=== PATIENT | male | born 1950 | race Caucasian/White ===

== ENCOUNTER 2025-05-16 16:36 | Emergency (ER) | payer OTHER ==
[~2025-05-16] VITALS: Ht 185.4 cm; Wt 79.9 kg
[2025-05-16 16:58] VITALS: TEMP 97.1
--- NOTE | 2025-05-16 17:10 | ELECTROCARDIOGRAPH REPORT ---
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 Enrique Gary Measurements Intervals [place] Rate: 73 P: 91 IN: 169 QRS: 68 QRSD: 94 T: 43 QT: 377 QTc: 416 Interpretive Statements Sinus rhythm Ventricular premature complex Electronically Signed On 05-16-2025 18:50:[address] Enrique Gary Please click the below link to view image of tracing.
--- NOTE | 2025-05-16 17:33 | RADIOLOGY REPORT ---
EXAM: DI CHEST,SINGLE VIEW HISTORY: CP TECHNIQUE: 1 view of the chest COMPARISON: None FINDINGS/IMPRESSION: LUNGS: No pleural effusion, consolidation, or pneumothorax. MEDIASTINUM: Unremarkable. BONES: Bilateral sequelae of healed nondisplaced fractures of the anterior 2nd ribs. Associated callus formation. OTHER: None.
[2025-05-16 17:43] LABS: MEAN PLATELET VOLUME 8.4 FL (7.4-10.4); RED CELL DISTRIBUTION WIDTH 13.9 % (11.5-14.5)
[2025-05-16 18:00] LABS: CREATININE 0.98 MG/DL (0.60-1.10); PRO BRAIN NATRIURETIC PEPTIDE 205 PG/ML (0-450); TOTAL CARBON DIOXIDE 31.0 MMOL/L (24-32); eCRCL 72 ML/MIN; eGFR 74 ML/MIN
[2025-05-16 20:50] VITALS: BP 147/78; PULSE 78; RESP 15; O2SAT 99
[2025-05-16] MEDS ORDERED: ROPI0.2534 PO (21:22)
--- NOTE | 2025-05-16 21:22 | Physician Documentation ---
History of Present Illness ~ Chief Complaint: Weakness Stated Complaint: MULTIPLE MED COMPLAINTS Time Seen by MD: 21:07 OK to notify your PCP?: Yes HPI Patient presents to the emergency room for evaluation of leg twitching. He states that in last night and kept him from sleeping. He states he has had this before but never this bad. No new medications. Patient also endorses shortness of breath however this is nothing acute and has been going on for some time. He attributes it to smoking which he is trying to quit Medication Reconciliation Allergies: Coded Allergies: No Known Allergies (Unverified , 05/16/25) Review of Systems ROS All review of systems negative except as per HPI Physical Exam Vital Signs: Temperature: 97.1, Heart Rate: 77, Respiratory Rate: 22, BP: 139/82, Pulse Oximetry: 99, Weight: 79.900 Oxygen Flow Rate: 0 Physical Exam General: Patient is awake, alert, oriented x4 in no acute distress Head: Normocephalic and atraumatic. Eyes: Conjunctival normal. EOMI. PERRL. ENT: Mucous membranes moist. Neck: Supple, trachea is midline. Chest: Clear to auscultation bilaterally without rales, rhonchi, or wheezes. There is no accessory muscle use or retractions. Cardiac: RRR without murmurs, gallops, or rubs. Abd: Soft, nondistended, nontender, with normoactive bowel sounds. No guarding, rebound, or rigidity. Extremities: Normal strength. Normal range of motion. No deformities or edema. \ Progress Results/Orders Results/Orders Orders - THOMAS RENTERIA MD Ropinirole Tablet (Requip Tablet) (05/16/25 21:15) Vital Signs 05/16/25 16:58 Temp 97.1 Pulse 77 Resp 22 B/P (MAP) 139/82 Pulse Ox 99 O2 Flow Rate 0 Laboratory Tests Test 05/16/25 17:12 05/16/25 19:17 White Blood Count 8.5 Red Blood Count 5.21 Hemoglobin 15.9 Hematocrit 45.0 Mean Corpuscular Volume 86.5 Mean Corpuscular Hemoglobin 30.5 Mean Corpuscular Hemoglobin Concent 35.3 Red Cell Distribution Width 13.9 Platelet Count 194 Mean Platelet Volume 8.4 Neutrophils (%) (Auto) 76.2 H Lymphocytes (%) (Auto) 15.5 L Monocytes (%) (Auto) 7.1 Eosinophils (%) (Auto) 0.5 Basophils (%) (Auto) 0.7 Neutrophils # (Auto) 6.5 Lymphocytes # (Auto) 1.3 Monocytes # (Auto) 0.6 Eosinophils # (Auto) 0.0 Basophils # (Auto) 0.1 CBC Comment Sodium Level 141 Potassium Level 3.3 L Chloride Level 102 Carbon Dioxide Level 31.0 Anion Gap 8 Blood Urea Nitrogen 20 H Creatinine 0.98 Estimated GFR/1.73 m2 74 BUN/Creatinine Ratio 20.4 H Glucose Level 127 H Calcium Level 10.0 Troponin I High Sensitivity 9 8 Pro-B-Type Natriuretic Peptide 205 Albumin 4.3 Chemistry Comments Troponin I High Sens Percent Delta 11 Troponin I Hi Sens Absolute Change -1 Medical Decision Making Additional information obtaine: N/A Findings Patient presents to the emergency room with switching in his legs that has per HPI. Differentials include but are not limited to restless legs syndrome, electrolyte disturbances, dehydration, muscle cramps therefore emergent labs ordered which were reassuring. Mild hypokalemia noted. Patient states he takes supplemental potassium twice a day. He has been instructed to increase his dosage to 3 times a day over the next two days. Encouraged to hydrate. I will give him prescription for ropinirole for restless leg syndrome Differential Dx:Considerations: Include: anemia, CVA, dehydration, dysrhythmia, electrolyte imbalance, encephalopathy, Guillain-Hood, hypoglycemia, hypotensio n, hypovolemia, labyrinthitis, Meniere's disease, myasathenia gravis, myocardial infarction, pulmonary embolus, renal failure, respiratory failure, TIA, VBI, vertigo central, vertigo peripheral, vestibular neuronitis, other Departure Disposition: HOME / SELF CARE / HOMELESS Impression: Primary Impression: Restless leg Additional Impression: Hypokalemia Condition: Stable Discharge Instructions: Restless Legs Syndrome Additional Instructions: Increase your potassium supplementation to 3 times a day over the next two days. Follow up with your doctor for management of your potassium. Keep hydrated. Referrals: NO PRIMARY CARE PROVIDER (PCP) Prescriptions Ropinirole Hcl (Ropinirole Hcl) 0.25 Mg Tablet 1 TAB PO HS, #15 TAB 0 Refills take one tablet for two nights. May increase to two tablets at night then after. Prov: THOMAS RENTERIA MD 05/16/25 Signature Scribe Signature: No scribe Attestation: The note accurately reflects work and decisions made by me.Thomas Renteria MD 05/16/25 21:19 THOMAS RENTERIA MD May 16, 2025 21:22
== END 2025-05-16 22:01 | disposition home or self-care (01) ==
LOC: ER 16:38
DX: G25.81 Restless legs syndrome (principal); E87.6 Hypokalemia; F17.200 Nicotine dependence, unspecified, uncomplicated
CPT/HCPCS: 36415; 71045; 80048; 83880; 84484; 85025; 93005; 99283; 99285

== ENCOUNTER 2025-05-18 17:11 | Emergency (ER) | payer OTHER ==
[~2025-05-18] VITALS: Ht 185.4 cm; Wt 79.5 kg
[~2025-05-18 17:11] MED LIST: ROPI0.2534 PO
--- NOTE | 2025-05-18 18:40 | Physician Documentation ---
History of Present Illness ~ Chief Complaint: Narcotic Withdrawl Stated Complaint: SOB Time Seen by MD: 17:37 OK to notify your PCP?: Yes Source: patient, family Mode of Arrival: EMS Exam Limitations: no limitations HPI 74-year-old male who is here due to shortness of breath and nausea as well as episodes of vomiting which have been ongoing now for a few days. He was seen here in the ER two days ago and states he was diagnosed with narcotic withdrawal. Patient was on Suboxone for over a year and decided this last month to wean himself off of it over a period of 30 days. He states that his last doses of Suboxone was a week ago and that his symptoms started a few days after his last dosage of Suboxone. He got on Suboxone after getting hooked on [place] following a back surgery. He states he can not sleep. He reports that his legs are very restless. He was prescribed Requip at his recent ER visit but this has not helped. Given zofran in ambulance on way here provided no relief of his nausea. Episode of vomiting shortly after arrival and reports still feels very nauseated. Medication Reconciliation Allergies: Coded Allergies: No Known Allergies (Unverified , 05/16/25) Scheduled Buprenorphine Hcl/Naloxone Hcl (Suboxone 2 Mg-0.5 Mg Sl Film), 2 STRIP SL DAILY Ropinirole Hcl (Ropinirole Hcl), 1 TAB PO HS Trazodone HCl (Trazodone HCl), 1 TAB PO HS Scheduled PRN ONDANSETRON ODT 4mg tablet (Ondansetron Odt), 1 TABLET PO Q6H PRN for nausea/vomiting Past Medical History Past Medical History: Chronic Back Pain Smoking Status: Former smoker Alcohol Use: None Drug Use: none Lives In: Home Review of Systems All Other Systems at this time: Reviewed and Negative Physical Exam Vital Signs: Temperature: 97.9, Source: Temporal, Heart Rate: 80, Respiratory Rate: 12, BP: 154/86, Pulse Oximetry: 96, Weight: 79.500 Physical Exam GENERAL: Alert, MILD DISTRESS, HOLDING EMESIS BAG WHICH CONTAINS EMESIS. HEENT: NCAT, EOMI, PERRL, normal oropharynx, moist oral mucosa. NECK: Supple, trachea midline. CARDIAC: Regular rate and rhythm, no murmurs, rubs, or gallops. Equal distal pulses. No lower extremity edema, cap refill less than 2 seconds. RESPIRATORY: Equal breath sounds, clear to auscultation bilaterally, no respiratory distress. GASTROINTESTINAL: Non distended, soft, nontender, No guarding or rebound. MUSCULOSKELETAL: Normal range of motion, nontender, no swelling. Normal gait. NEUROLOGICAL: Awake, alert, and oriented x 3. SKIN: Warm/dry, no pallor, no rash. PSYCH: Alert and appropriate. Affect congruent with mood. Speech is clear. Good eye contact. General Appearance: alert Progress Results/Orders Results/Orders Completed Orders - OHLFS,KAIN Saha MD Buprenorphine/Naloxone Tablet (Buprenorp (05/18/25 19:15) Hs Troponin I W Calculations (05/18/25 20:00) Lisinopril Tablet (Zestril Tablet) (05/18/25 20:45) Ondansetron Disint. Tablet (Zofran Odt T (05/18/25 20:45) Lorazepam Tablet (Ativan Tablet) (05/18/25 20:45) Normal Saline 1000ml (0.9% Sodium Chlori (05/18/25 21:15) Normal Saline 1000ml (0.9% Sodium Chlori (05/18/25 21:55) Medications Received in ER Medications (Trade) Dose Ordered Sig/Jasmine Route PRN Reason Start Time Stop Time Status Last Admin Dose Admin (Zofran ODT tablet) 4 mg ONCE ONCE PO 05/18/25 20:45 05/18/25 20:49 DC 05/18/25 20:58 4 MG (Ativan tablet) 2 mg ONCE ONCE PO 05/18/25 20:45 05/18/25 20:46 DC 05/18/25 20:59 2 MG (0.9% sodium chloride (NS) 1000ml IV soln) 1,000 ml ONCE ONCE IVB 05/18/25 21:15 05/18/25 21:23 DC 05/18/25 21:30 1,000 ML (0.9% sodium chloride (NS) 1000ml IV soln) 1,000 ml ONCE ONCE IVB 05/18/25 21:55 05/18/25 21:58 DC 05/18/25 22:00 1,000 ML Vital Signs 05/18/25 05/18/25 05/18/2525 17:13 17:35 17:36 19:19 Temp 97.9 97.9 Pulse 55 80 62 Resp 16 15 12 16 B/P (MAP) 195/80 154/86 (108) 121/79 Pulse Ox 99 96 100 05/18/25 05/18/25 05/18/25 05/18/25 20:15 20:59 21:30 21:59 Temp 97.9 97.9 Pulse 60 58 59 Resp 16 18 16 B/P (MAP) 165/67 (99) 81/45 (57) 105/54 (71) Pulse Ox 100 98 O2 Flow Rate 0 0 Laboratory Tests Test 05/18/25 18:14 05/18/25 20:40 White Blood Count 7.8 Red Blood Count 5.09 Hemoglobin 15.6 Hematocrit 44.1 Mean Corpuscular Volume 86.7 Mean Corpuscular Hemoglobin 30.6 Mean Corpuscular Hemoglobin Concent 35.3 Red Cell Distribution Width 13.8 Platelet Count 169 Mean Platelet Volume 8.5 Neutrophils (%) (Auto) 85.9 H Lymphocytes (%) (Auto) 8.6 L Monocytes (%) (Auto) 4.7 Eosinophils (%) (Auto) 0.1 Basophils (%) (Auto) 0.7 Neutrophils # (Auto) 6.7 Lymphocytes # (Auto) 0.7 L Monocytes # (Auto) 0.4 Eosinophils # (Auto) 0.0 Basophils # (Auto) 0.1 CBC Comment Sodium Level 138 Potassium Level 2.9 *L Chloride Level 99 Carbon Dioxide Level 28.7 Anion Gap 10 Blood Urea Nitrogen 20 H Creatinine 0.82 Estimated GFR/1.73 m2 > 90 BUN/Creatinine Ratio 24.4 H Glucose Level 134 H Calcium Level 9.6 Magnesium Level 1.9 Troponin I High Sensitivity 12 19 Troponin I High Sens Percent Delta 50 58 Troponin I Hi Sens Absolute Change 4 7 Pro-B-Type Natriuretic Peptide 187 Albumin 4.4 Chemistry Comments Medical Decision Making Additional information obtaine: N/A Findings N/A Differential Dx:Considerations: Include: Alcohol withdrawl synd., Delerium tremens, Hallucinosis, Seizures, Anticholinergic poisoning, CVA, Dehydration, Depression, Drug induced psychosis, Electolyte imbalance, Encephalitis, Encephalopathy, Hepatitis, Hyperthermia, Intoxication-alcohol, Intoxication- other drug, Medical noncompliance, Personality disorder, Schizophrenia, Seizure disorder, Substance abuse disorder, Seizure disorder, Thiamine deficiency, Thyrotoxicosis, Other Departure Time of Disposition: 18:50 Disposition: 01 HOME / SELF CARE / HOMELESS Impression: Primary Impression: Narcotic withdrawal Condition: Stable Discharge Instructions: Narcotic Withdrawal Additional Instructions: I RECOMMEND YOU TAPER OFF THE SUBOXONE OVER A LONGER PERIOD OF TIME IT APPEARS YOUR SYMPTOMS ARE DUE TO TAPERING OFF TOO QUICKLY RETURN TO ER IF ANY NEW CONCERNING SYMPTOMS OTHERWISE F/U WITH PCP WITHIN THE NEXT WEEK Referrals: NO PRIMARY CARE PROVIDER (PCP) Prescriptions ONDANSETRON ODT 4mg tablet (ONDANSETRON ODT) 4 Mg Tab.rapdis 1 TABLET PO Q6H PRN for nausea/vomiting, #12 TABLET Prov: KAIN BACA MD 05/18/25 Trazodone HCl (Trazodone HCl) 50 Mg Tablet 1 TAB PO HS for 30 Days, #30 TAB 0 Refills Prov: KAIN BACA MD 05/18/25 Buprenorphine Hcl/Naloxone Hcl (Suboxone 2 Mg-0.5 Mg Sl Film) 2 Mg-0.5 Mg Film 2 STRIP SL DAILY for 30 Days, #30 STRIP DX: NARCOTIC WITHDRAWAL F11.23 Prov: JOSEPHINE COOPER 05/18/25 Education Educated: Patient Educated regarding: diagnosis, treatment, need for follow up Additional Comment Seen with PA/DISTRIBUTION SUPERINTENDENT The patient was seen with the physician social work assistant the patient received a dose of Suboxone here as he has narcotic withdrawal symptoms, the patient did develop some hypotension this resolved after IV fluid administration. The patient states symptoms have improved the patient will be discharged on Suboxone. The patient has been advised to return for significant worsening of his symptoms. Signature Scribe Signature: x Attestation: JOSEPHINE Escobar May 18, 2025 18:40 KAIN BACA MD May 19, 2025 04:24
--- NOTE | 2025-05-18 18:41 | ELECTROCARDIOGRAPH REPORT ---
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 GEORGE Mendez Measurements Intervals [place] Rate: 67 P: 92 HI: 193 QRS: 85 QRSD: 102 T: 80 QT: 470 QTc: 497 Interpretive Statements Sinus bradycardia Atrial premature complex Borderline right axis deviation Electronically Signed On 05-21-2025 18:04:[address] GEORGE Mendez Please click the below link to view image of tracing.
--- NOTE | 2025-05-18 18:47 | RADIOLOGY REPORT ---
EXAM: DI CHEST,SINGLE VIEW CLINICAL HISTORY: CP TECHNIQUE: Single AP view of the chest WID: COMPARISON: DI CHEST,SINGLE VIEW on DOS: 05/16/25 FINDINGS: Lines and tubes: None Chest: The heart size and pulmonary vasculature is within normal limits. No pleural effusion, pneumothorax, or consolidation. Linear areas of atelectasis or scarring in the lower lungs. The osseous structures are grossly intact. Multilevel thoracic spondylosis. IMPRESSION: 1. No acute cardiopulmonary abnormality.
[2025-05-18 18:51] LABS: MEAN PLATELET VOLUME 8.5 FL (7.4-10.4); RED CELL DISTRIBUTION WIDTH 13.8 % (11.5-14.5)
[2025-05-18] MEDS ORDERED: BUPR1FIL17 SL (19:00)
[2025-05-18 19:11] LABS: CREATININE 0.82 MG/DL (0.60-1.10); PRO BRAIN NATRIURETIC PEPTIDE 187 PG/ML (0-450); TOTAL CARBON DIOXIDE 28.7 MMOL/L (24-32); eCRCL 86 ML/MIN; eGFR > 90 ML/MIN
[2025-05-18] MEDS: buprenorphine/naloxone 2-0.5mg sublingual tablet SL STA (19:16)
[2025-05-18] MEDS: buprenorphine/naloxone 2-0.5mg sublingual tablet SL ONE (19:47)
[2025-05-18] MEDS ORDERED: TRAZ-251 PO (20:44)
[2025-05-18] MEDS ORDERED: ONDA-243 PO (20:45)
[2025-05-18] MEDS: ondansetron 4mg rapidly disintigrating tab PO ONE (20:58)
[2025-05-18 21:30] VITALS: RESP 16; TEMP 97.9; O2SAT 98
[2025-05-18] MEDS: normal saline 1000ML IV soln IVB ONE ×2 (21:30→22:00)
[2025-05-18 21:59] VITALS: BP 105/54; PULSE 59
== END 2025-05-18 22:39 | disposition home or self-care (01) ==
LOC: ER 17:11
DX: F11.23 Opioid dependence with withdrawal (principal); G89.29 Other chronic pain; Z79.899 Other long term (current) drug therapy
CPT/HCPCS: 36415; 71045; 80048; 83735; 83880; 84484; 85025; 93005; 96361; 96374; 99285; J0780; J7030